=== PATIENT | male | born 1965 | race Caucasian/White ===

== ENCOUNTER 2017-02-10 18:44 | Emergency (ER) | payer BC ==
[2017-02-10 19:17] VITALS: BP 130/82
--- NOTE | 2017-02-10 19:37 | EDM.PDOC ---
ED HPI GENERAL MEDICAL PROBLEM - General Chief Complaint: Lower Extremity Injury/Pain Stated Complaint: BLOOD CLOT RT LEG Time Seen by Provider: 02/10/17 19:06 Source of Information: Reports: Patient, RN Notes Reviewed History Limitations: Reports: No Limitations - History of Present Illness INITIAL COMMENTS - FREE TEXT/NARRATIVE: 51-year-old gentleman presents emergency department today with complaint of leg pain predominately in the right side thigh, he does have a history of DVT is currently on Coumadin but he admits he does not know what his INR is he's had the pain for about 24 hours is not taking anything for the pain, Denies any nausea, vomiting, fevers, shortness of breath, chest pain, or GI symptomatology. Treatments [employer]: Reports: Aspirin, NSAIDS right groin Pain Score (Numeric/FACES): 5 - Related Data Allergies Allergy/AdvReac Type Severity Reaction Status Date / Time No Known Allergies Allergy Verified 02/10/17 19:13 Home Meds: Home Meds Warfarin Sodium [Warfarin Sodium] 10 mg PO ASDIRECTED 05/18/16 [History] Warfarin [Coumadin] 7.5 mg PO ASDIRECTED 02/10/17 [History] Past Medical History HEENT History: Reports: Impaired Vision Cardiovascular History: Reports: Blood Clots/VTE/DVT Genitourinary History: Reports: Renal Calculus Musculoskeletal History: Reports: Fracture, Other (See Below) Other Musculoskeletal History: left rib fractures - Past Surgical History GI Surgical History: Reports: Hernia Repair/Other Musculoskeletal Surgical History: Reports: Other (See Below) Other Musculoskeletal Surgeries/Procedures:: pelvic fx Social & Family History - Tobacco Use Smoking Status *Q: Never Smoker - Caffeine Use Caffeine Use: Reports: Coffee - Recreational Drug Use Recreational Drug Use: No Review of Systems - Review of Systems Review Of Systems: See Below Constitutional: Reports: No Symptoms Respiratory: Reports: No Symptoms Cardiovascular: Reports: No Symptoms GI/Abdominal: Reports: No Symptoms Genitourinary: Reports: No Symptoms Musculoskeletal: Reports: Leg Pain ED EXAM, GENERAL - Physical Exam Exam: See Below Free Text/Narrative:: Examination of the right lower extremity I don't appreciate any edema there is no tightness to the calf there is no specific point tenderness to palpation in the thigh or the calf pedal pulse is +2, the left leg is significantly larger than the right however he states this is normal state for the left leg Exam Limited By: No Limitations General Appearance: Alert (Urine), WD/WN, No Apparent Distress Respiratory/Chest: No Respiratory Distress Peripheral Pulses: 2+: Dorsalis Pedis (L), Dorsalis Pedis (R) Course - Vital Signs Last Recorded V/S: Last Vital Signs Temp 99.0 F 02/10/17 19:14 Pulse 88 02/10/17 19:14 Resp 18 02/10/17 19:14 BP 130/82 02/10/17 19:14 Pulse Ox 97 02/10/17 19:14 - Orders/Labs/Meds Labs: Laboratory Tests 02/10/17 02/10/17 Range/Units 19:40 19:40 PT 27.9 H (9.5-12.0) sec INR 2.51 H (0.80-1.20) D-Dimer, Quantitative < 100 (0.0-400.0) ng/mL Departure - Departure Time of Disposition: 20:42 Disposition: Home, Self-Care 01 Condition: Good Clinical Impression: Muscle strain - Discharge Information Referrals: Chetan Dunn MD [Primary Care Provider] - Forms: ED Department Discharge Additional Instructions: Use Ultram as needed for pain control, Please followup with your primary care provider in 3-5 days if not better, please call return to the emergency department with worsening of symptoms. - Assessment/Plan Plan: Assessment Acuity = acute Site and laterality = right leg pain probable muscle strain complicated patient with known history of DVT on chronic anticoagulation Etiology = secondary to walking injury Manifestations = none Location of injury = Home Lab values = INR 2.51 therapeutic, d-dimer less than 100 Plan I did review lab work with him plan is to use Ultram as needed for pain control follow up with primary care 3-5 days if not better, 50 mg 1 tablet by mouth every 6 hours when necessary total #15 tablets Patient was in agreement with the plan all questions were answered, they were instructed to return to the emergency department or call for worsening symptoms. This note was dictated using [employer] voice recognition software please call with any questions.
== END 2017-02-10 21:00 | disposition home or self-care (01) ==
LOC: JP.ED 18:44
DX: M79.604 Pain in right leg (principal); Z86.718 Personal history of other venous thrombosis and embolism; Z79.01 Long term (current) use of anticoagulants; Z87.442 Personal history of urinary calculi; Z98.890 Other specified postprocedural states; X58.XXXA Exposure to other specified factors, initial encounter; Y93.01 Activity, walking, marching and hiking; Y92.009 Unspecified place in unspecified non-institutional (private) residence as the place of occurrence of the external cause
CPT/HCPCS: 36415; 85379; 85610; 99284

== ENCOUNTER 2018-09-14 11:59 | Emergency (ER) | payer BC, OTHER ==
[2018-09-14 12:33] VITALS: BP 122/73
--- NOTE | 2018-09-14 13:34 | EDM.PDOC ---
ED HPI GENERAL MEDICAL PROBLEM - General Chief Complaint: Upper Extremity Injury/Pain Stated Complaint: FELL OFF OF LADDER Time Seen by Provider: 09/14/18 13:33 Source of Information: Reports: Patient History Limitations: Reports: No Limitations - History of Present Illness INITIAL COMMENTS - FREE TEXT/NARRATIVE: pt had a ladder give way and he fell and he hit his rt shoulder and the rt side of the chest. Onset: Today, Sudden Duration: Hour(s): Location: Reports: Upper Extremity, Right Associated Symptoms: Reports: No Other Symptoms - Related Data Allergies Allergy/AdvReac Type Severity Reaction Status Date / Time No Known Allergies Allergy Verified 09/14/18 12:26 Home Meds: Home Meds Warfarin Sodium 10 mg PO ASDIRECTED 05/18/16 [History] Warfarin [Coumadin] 7.5 mg PO ASDIRECTED 02/10/17 [History] Past Medical History HEENT History: Reports: Impaired Vision Cardiovascular History: Reports: Blood Clots/VTE/DVT Genitourinary History: Reports: Renal Calculus Musculoskeletal History: Reports: Fracture, Other (See Below) Other Musculoskeletal History: left rib fractures - Past Surgical History GI Surgical History: Reports: Hernia Repair/Other Musculoskeletal Surgical History: Reports: Other (See Below) Other Musculoskeletal Surgeries/Procedures:: pelvic fx Social & Family History - Tobacco Use Smoking Status *Q: Never Smoker - Caffeine Use Caffeine Use: Reports: Coffee Review of Systems - Review of Systems Review Of Systems: See Below Constitutional: Reports: No Symptoms Eyes: Reports: No Symptoms Ears: Reports: No Symptoms Nose: Reports: No Symptoms Mouth/Throat: Reports: No Symptoms Respiratory: Reports: No Symptoms, Other (pt has pain in the rt rib cage area. ) Cardiovascular: Reports: No Symptoms GI/Abdominal: Reports: No Symptoms Genitourinary: Reports: No Symptoms Musculoskeletal: Reports: No Symptoms Skin: Reports: No Symptoms ED EXAM, GENERAL - Physical Exam Exam: See Below Free Text/Narrative:: pt fell off of a ladder and landed on his rt side. He is having pain in his rt shoulder and he has difficulty lifting his rt arm anteriorly. He has no swelling or bruising. He has pain in his rt ant rib cage. Exam Limited By: No Limitations General Appearance: Alert, Moderate Distress Ears: Normal TMs Nose: Normal Inspection Throat/Mouth: Normal Inspection Head: Atraumatic Neck: Normal Inspection Respiratory/Chest: No Respiratory Distress, Other (pt has pain in the mid portion of his rt ant chest. He hurst some when he takes a deep breath. ) Cardiovascular: Regular Rate, Rhythm GI/Abdominal: Soft, Non-Tender (Male) Exam: Deferred Rectal (Males) Exam: Deferred Back Exam: Normal Inspection Extremities: Other (pt has mild tenderness over the rt shoulder. He is having difficulty lifting his arm anteriorly) Neurological: Alert, Oriented, Normal Cognition Psychiatric: Normal Affect Course - Vital Signs Last Recorded V/S: Last Vital Signs Temp 36.5 C 09/14/18 12:31 Pulse 74 09/14/18 12:31 Resp 14 09/14/18 12:31 BP 122/73 09/14/18 12:31 Pulse Ox 98 09/14/18 12:31 - Orders/Labs/Meds Meds: Medications Discontinued Medications Generic Name Dose Route Start Last Admin Trade Name Freq PRN Reason Stop Dose Admin Oxycodone/Acetaminophen 1 tab 09/14/18 16:34 Percocet 325-5 Mg PO 09/14/18 16:35 ONETIME ONE - Re-Assessments/Exams Free Text/Narrative Re-Assessment/Exam: 09/14/18 16:47 chest xray was normal, shoulder showed no davis abnormalities, his rib detail showed a possible undisplaced fracture of the rt 8th rib. Departure - Departure Time of Disposition: 16:36 Disposition: Home, Self-Care 01 Condition: Fair Clinical Impression: Pain of anterior chest wall with respiration, Acute shoulder pain, Rib fracture - Discharge Information Instructions: Shoulder Pain, [id number], Rib Fracture, [id number] Referrals: Chetan Dunn MD [Primary Care Provider] - Forms: ED Department Discharge Care Plan Goals: cool pack to the rt ant chest and shoulder, sling if more comfortable, norco 5/ 325 q6h prn for pain motrin 600mg tid for pain, encourage deep breathing, referal to orth regarding the shoulder.
--- NOTE | 2018-09-14 14:56 | CRLCR ---
INDICATION: Pain after fall TECHNIQUE: Chest 2 views. COMPARISON: 03/27/2012 FINDINGS: Cardiovascular and mediastinum: Heart size is normal. Pulmonary vasculature is normal. Mediastinum is within normal limits. Lungs and pleural spaces: No consolidation. No edema. Possible 1.8 cm round density in the medial right upper lobe. This is not seen on the lateral view. No pleural effusion. No pneumothorax. Bones and soft tissues: No acute findings. No definite rib fracture identified. IMPRESSION: 1. No acute pulmonary process. 2. Possible 1.8 cm round density in the medial right upper lobe. This is not seen on the lateral view. It may be artifactual. Recommend short interval radiographic followup versus nonemergent CT for further evaluation. Dictated by Nishant Kamara MD @ Sep 14 2018 2:49PM Signed by Dr. Nishant Kamara @ Sep 14 2018 2:54PM
--- NOTE | 2018-09-14 14:58 | CRLCR ---
INDICATION: Shoulder pain after fall. TECHNIQUE: Three views right shoulder. COMPARISON: None FINDINGS AND IMPRESSION: No acute fracture. No dislocation. No AC separation. Mild degenerate change at the AC joint. No suspicious bone lesion. Dictated by Nishant Kamara MD @ 09/14/2018 2:57:03 PM Dictated by: Nishant Kamara MD @ 09/14/2018 14:57:08 (Electronically Signed)
[2018-09-14] MEDS ORDERED: Acetaminophen/oxyCODONE 325-5 MG Tab PO ONE (16:34)
--- NOTE | 2018-09-14 16:35 | CRLCR ---
INDICATION: Fall from ladder. Pain in the right anterior chest. TECHNIQUE: Right ribs - 3 views. COMPARISON: Chest radiograph 09/14/2018, 03/27/2012. Findings and impression: Possible subtle nondisplaced fracture of anterior right rib 8 seen on only a single view. No other fracture identified. Dictated by Nishant Kamara MD @ 09/14/2018 4:34:02 PM Dictated by: Nishant Kamara MD @ 09/14/2018 16:34:12 (Electronically Signed)
== END 2018-09-14 17:04 | disposition home or self-care (01) ==
LOC: JP.ED 11:59
DX: S22.31XA Fracture of one rib, right side, initial encounter for closed fracture (principal); M25.511 Pain in right shoulder; R07.1 Chest pain on breathing; W11.XXXA Fall on and from ladder, initial encounter; Z79.01 Long term (current) use of anticoagulants
CPT/HCPCS: 71046; 71100; 73030; 99283; A9270

== ENCOUNTER 2021-03-19 10:10 | Emergency (ER) | payer OTHER ==
[2021-03-19 11:16] VITALS: BP 118/88; PULSE 84
--- NOTE | 2021-03-19 11:38 | EDM.PDOC ---
ED HPI GENERAL MEDICAL PROBLEM - General Chief Complaint: Allergic Reaction Stated Complaint: REACTION FOR MEDS Time Seen by Provider: 03/19/21 11:38 Source of Information: Reports: Patient, RN Notes Reviewed History Limitations: Reports: No Limitations - History of Present Illness INITIAL COMMENTS - FREE TEXT/NARRATIVE: Angel presents today for concerns of allergic reaction to bactrim. He reports he has taken 4 doses. He was in to the clinic on 03/17/2021 and prescribed bactrim for UTI due to symptoms of urgency, frequency, joint aches and dribbling and treated for cystitis. He also states he had fever and chills prior to his clinic visit. Today he reports he feels much better. He complains of sudden onset large blister to plantar surface of hit right foot, small blister to the right 2nd toe and left 2nd finger. He states the areas become itchy then a blister develops. He denies any mouth sores, edema, difficulty eating, drinking. He denies fever, chills, nausea, vomiting, change in bowel/bladder or other concerns. He is currently being evaluated by [facility] for an autoimmune disorder. Lymes testing in November. UA completed 03/17/2021 per [facility] showed: Urine color straw yellow, rush Urine slightly cloudy Urine specific gravity 1.020 Urine pH 6.0 Urine glucose negative Urine ketones negative Urine protein negative Urine nitrites negative Urine leukocyte esterase trace Urine WBC's 3-8 Urine RNB's none seen Urine baceria moderate Urien squamous epithelia cells few - Related Data Allergies Allergy/AdvReac Type Severity Reaction Status Date / Time ciprofloxacin Allergy Rash Verified 03/19/21 11:30 Home Meds: Home Meds Warfarin [Coumadin] 7.5 mg PO ASDIRECTED 02/10/17 [History] Gabapentin [Neurontin] 300 mg PO BEDTIME 03/19/21 [History] Sulfamethoxazole/Trimethoprim [Bactrim Ds Tablet] 1 tab PO ASDIRECTED 03/19/21 [History] Tamsulosin [Flomax] 1 tab PO DAILY 03/19/21 [History] Warfarin [Coumadin] 5 mg PO ASDIRECTED 03/19/21 [History] Past Medical History HEENT History: Reports: Impaired Vision Cardiovascular History: Reports: Blood Clots/VTE/DVT (Left leg DVT-history 06/04/2014) Respiratory History: Reports: None, Sleep Apnea Gastrointestinal History: Reports: None Genitourinary History: Reports: None, BPH, Renal Calculus, Other (See Below) Other Genitourinary History: cysts on r adrenal gland and on left kidney. impotence. renal stones. nephrolithiasis Musculoskeletal History: Reports: Fracture, Other (See Below) Other Musculoskeletal History: left rib fractures. right rib pain, history of rib fracture. right shoulder pain. right ankle pain. complete tear of right rotator cuff Neurological History: Reports: None Psychiatric History: Reports: None Endocrine/Metabolic History: Reports: None Hematologic History: Reports: None, Anticoagulation Therapy Immunologic History: Reports: None Oncologic (Cancer) History: Reports: None Dermatologic History: Reports: None - Infectious Disease History Infectious Disease History: Reports: Chicken Pox, Measles, Mumps - Past Surgical History Head Surgeries/Procedures: Reports: None HEENT Surgical History: Reports: None Cardiovascular Surgical History: Reports: None GI Surgical History: Reports: Hernia Repair/Other Male Surgical History: Reports: None Musculoskeletal Surgical History: Reports: Other (See Below) Other Musculoskeletal Surgeries/Procedures:: pelvic fx Social & Family History - Tobacco Use Tobacco Use Status *Q: Never Tobacco User - Caffeine Use Caffeine Use: Reports: Coffee ED ROS ALLERGIC REACTION - Review of Systems Review Of Systems: See Below Constitutional: Reports: Malaise HEENT: Reports: No Symptoms Respiratory: Reports: No Symptoms Cardiovascular: Reports: No Symptoms Endocrine: Reports: No Symptoms GI/Abdominal: Denies: Abdominal Pain, Black Stool, Bloody Stool, Constipation, Diarrhea, Decreased Appetite, Difficulty Swallowing, Distension, Hematemesis, Hematochezia, Nausea, Vomiting : Reports: Other (He did have fever, chills, muscle aches, urgency, frequency and dribbling this past week prior to clinic visit on 03/17/2021. ). Denies: Discharge, Dysuria, Flank Pain, Frequency, Hematuria, Incontinence, Urgency, Urinary Retention Musculoskeletal: Reports: Other (generalized muscle and joint pain off and on) Skin: Reports: Other (Large fluid filled blister to right foot, smaller blister to right 2nd toe and left 2nd finger) Neurological: Reports: No Symptoms Psychiatric: Reports: No Symptoms Hematologic/Lymphatic: Reports: No Symptoms Immunologic: Reports: No Symptoms ED EXAM GENERAL NO PERIP PULSE - Physical Exam Exam: See Below Exam Limited By: No Limitations General Appearance: Alert, WD/WN, No Apparent Distress Eye Exam: Bilateral Eye: PERRL Ears: Normal External Exam, Normal Canal, Hearing Grossly Normal, Normal TMs Throat/Mouth: Normal Inspection, Normal Lips, Normal Teeth, Normal Gums, Normal Oropharynx, Normal Voice, No Airway Compromise Head: Atraumatic, Normocephalic Neck: Normal Inspection, Supple, Non-Tender, Full Range of Motion. No: Lymphadenopathy (R), Lymphadenopathy (L) Respiratory/Chest: No Respiratory Distress, Lungs Clear, Normal Breath Sounds, No Accessory Muscle Use, Chest Non-Tender. No: Crackles, Rales, Rhonchi, Wheezing, Stridor Cardiovascular: Normal Peripheral Pulses, Regular Rate, Rhythm, No Edema, No Gallop, No Murmur, No Rub Back Exam: Normal Inspection, Full Range of Motion. No: CVA Tenderness (R), CVA Tenderness (L) Extremities: Normal Range of Motion, No Pedal Edema, Normal Capillary Refill, Other (tender to sites of blisters x 2 right foot. ) Neurological: Alert, Oriented, CN II-XII Intact, Normal Cognition, Normal Gait, Normal Reflexes, No Motor/Sensory Deficits Psychiatric: Normal Affect, Normal Mood Skin Exam: Warm, Dry, No Rash, Other (3x3 fluid filled blister plantar surface right foot. 0.5cm blister right 2nd toe, <0.5cm blister left index finger. No other areas of blistering or rash). No: Cyanosis, Mottled, Pallor Lymphatic: No Adenopathy Course - Vital Signs Last Recorded V/S: Last Vital Signs Temp 37.1 C 03/19/21 11:17 Pulse 84 03/19/21 11:17 Resp 20 03/19/21 11:17 BP 118/88 03/19/21 11:17 Pulse Ox 98 03/19/21 11:17 - Orders/Labs/Meds Labs: Laboratory Tests 03/19/21 03/19/21 03/19/21 Range/Units 12:25 12:25 12:59 WBC 7.1 (4.5-11.0) K/uL RBC 5.16 (4.30-5.90) M/uL Hgb 14.8 (12.0-15.0) g/dL Hct 44.7 (40.0-54.0) % MCV 87 (80-98) fL MCH 29 (27-31) pg MCHC 33 (32-36) % Plt Count 263 (150-400) K/uL Neut % (Auto) 73.7 H (36-66) % Lymph % (Auto) 12.7 L (24-44) % [place] % (Auto) 8.8 H (2-6) % Eos % (Auto) 4.0 (2-4) % Baso % (Auto) 0.7 (0-1) % Sodium 136 L (140-148) mmol/L Potassium 3.9 (3.6-5.2) mmol/L Chloride 98 L (100-108) mmol/L Carbon Dioxide 25 (21-32) mmol/L Anion Gap 16.9 H (5.0-14.0) mmol/L BUN 13 (7-18) mg/dL Creatinine 1.1 (0.8-1.3) mg/dL Est Cr Clr Drug Dosing 78.91 mL/min Estimated GFR (MDRD) > 60 (>60) Glucose 136 H (74-106) mg/dL Calcium 9.0 (8.5-10.1) mg/dL Urine Color Yellow (YELLOW) Urine Appearance Clear (CLEAR) Urine pH 6.0 (5.0-8.0) Ur Specific [place] 1.020 (1.008-1.030) Urine Protein Negative (NEGATIVE) mg/dL Urine Glucose (UA) Negative (NEGATIVE) mg/dL Urine Ketones Negative (NEGATIVE) mg/dL Urine Occult Blood Small H (NEGATIVE) Urine Nitrite Negative (NEGATIVE) Urine Bilirubin Negative (NEGATIVE) Urine Urobilinogen 0.2 (0.2-1.0) EU/dL Ur Leukocyte Esterase Negative (NEGATIVE) Urine RBC 0-5 (0-5) Urine WBC Not seen (0-5) Ur Epithelial Cells Not seen Amorphous Sediment Rare Urine Bacteria Not seen Urine Mucus Not seen Patient lab work reviewed, no acute findings noted. We will have him stop use of bactrim and gabapentin as they can have risk for skin type adverse reactions. - Re-Assessments/Exams Free Text/Narrative Re-Assessment/Exam: 03/19/21 12:18 Discussed findings with patient, his and Dr. Mejía. We will obtain UA, CBC, BMP and stop use of bactrim PO. 03/19/21 12:[address] [facility] record obtained, noted history of BPH, most recent urine collection obtained - no indication of infection. 03/19/21 13:30 Patient education provided on care of blisters, watching for signs of infection. Patient verbalized understanding. Departure - Departure Time of Disposition: 13:26 Disposition: Home, Self-Care 01 Condition: Good Clinical Impression: Blister of right foot without infection, Blister (nonthermal) of left index finger, initial encounter, Drug reaction - Discharge Information Instructions: Blisters, Adult Referrals: Angie Alfredo MD [Primary Care Provider] - Forms: ED Department Discharge Additional Instructions: You have been evaluated and treated for blisters of the right foot and left index finger. Keep the blister areas covered. You can apply a small amount of petroleum jelly and a nonstick dressing to the blisters as they heal. This could be a possible reaction from bactrim and gabapentin as they both have adverse skin reactions. Currently there is no sign of infection in the urine or blood lab work. It would be best to limit soda pop intake, increase water intake and follow up with your primary provider in 7 to 10 days for a recheck. If any worsening, issues or concerns then return to the emergency room. Sepsis Event Note (ED) - Evaluation Sepsis Screening Result: No Definite Risk - Focused Exam Vital Signs: Vital Signs Temp Pulse Resp BP Pulse Ox 03/19/21 11:17 37.1 C 84 20 118/88 98 03/19/21 11:15 37.1 C 84 20 118/88 98 - Assessment/Plan Assessment:: Blister of right foot without infection, Blister (nonthermal) of left index finger, initial encounter, Drug reaction Stop use of bactrim and gabapentin. Follow up with primary provider as directed. Plan: Patient evaluated and treated for blisters of the right foot and left index finger. Keep the blister areas covered. You can apply a small amount of petroleum jelly and a nonstick dressing to the blisters as they heal. This could be a possible reaction from bactrim and gabapentin as they both have adverse skin reactions. Currently there is no sign of infection in the urine or blood lab work. It would be best to limit soda pop intake, increase water intake and follow up with your primary provider in 7 to 10 days for a recheck. If any worsening, issues or concerns then return to the emergency room.
== END 2021-03-19 13:38 | disposition home or self-care (01) ==
LOC: JP.ED 10:10
DX: S90.821A Blister (nonthermal), right foot, initial encounter (principal); S60.421A Blister (nonthermal) of left index finger, initial encounter; T36.8X5A Adverse effect of other systemic antibiotics, initial encounter; N40.0 Benign prostatic hyperplasia without lower urinary tract symptoms; Z86.718 Personal history of other venous thrombosis and embolism; Z79.899 Other long term (current) drug therapy; Z88.1 Allergy status to other antibiotic agents; X58.XXXA Exposure to other specified factors, initial encounter
CPT/HCPCS: 36415; 80048; 81001; 85025; 99283